=== PATIENT | male | born 1935 | race Caucasian/White ===

== ENCOUNTER 2020-01-14 10:06 | Emergency (ER) | payer MEDICARE, OTHER ==
--- NOTE | 2020-01-14 11:17 | EDM.PDOC ---
ED HPI GENERAL MEDICAL PROBLEM - General Chief Complaint: Cardiovascular Problem Stated Complaint: SWELLING IN FEET Time Seen by Provider: 01/14/20 10:55 Source of Information: Reports: Patient History Limitations: Reports: No Limitations - History of Present Illness INITIAL COMMENTS - FREE TEXT/NARRATIVE: 84-year-old male here with lower extremity edema. Is been bothering him for a week and is actually improving, he said he was swollen up to his thighs earlier and his toes were very swollen, now he just has tense edema between the knees and ankles. He does admit his been getting into extra salt since he came up here for vacation. He left his compression stockings at home. He recently received chemotherapy and radiation for cancer, he does not know what kind or where the radiation was. He has no pain or shortness of breath. His legs do not hurt. Onset: Gradual Duration: Week(s): (1 to 2 weeks) Associated Symptoms: Denies: Chest Pain, Cough, Fever/Chills, Headaches, Nausea/Vomiting, Shortness of Breath, Weakness - Related Data Allergies Allergy/AdvReac Type Severity Reaction Status Date / Time No Known Allergies Allergy Verified 01/14/20 10:45 Home Meds: Home Meds Allopurinol [Zyloprim] 100 mg PO DAILY 01/14/20 [History] Apixaban [Eliquis] 5 mg PO BID 01/14/20 [History] Levothyroxine 75 mcg PO ACBREAKFAST 01/14/20 [History] amLODIPine [Norvasc] 2.5 mg PO DAILY 01/14/20 [History] atorvaSTATin [Lipitor] 10 mg PO BEDTIME 01/14/20 [History] Past Medical History HEENT History: Reports: Hard of Hearing Cardiovascular History: Reports: High Cholesterol, Hypertension Musculoskeletal History: Reports: Gout Oncologic (Cancer) History: Reports: Other (See Below) Other Oncologic History: just finished chemo and radiation but doesn't remember what kind of cancer it was. - Past Surgical History GI Surgical History: Reports: Appendectomy Social & Family History - Tobacco Use Smoking Status *Q: Never Smoker - Caffeine Use Caffeine Use: Reports: Coffee - Recreational Drug Use Recreational Drug Use: No ED ROS GENERAL - Review of Systems Review Of Systems: See Below Constitutional: Denies: Fever, Chills, Malaise Respiratory: Denies: Shortness of Breath Cardiovascular: Denies: Chest Pain, Palpitations GI/Abdominal: Denies: Abdominal Pain, Nausea, Vomiting Skin: Reports: Other (Some oozing through some superficial blistering on the left lower leg due to the edema) Neurological: Reports: Other (Very hard of hearing). Denies: Paresthesia Psychiatric: Reports: No Symptoms ED EXAM, GENERAL - Physical Exam Exam: See Below Exam Limited By: No Limitations General Appearance: Alert, No Apparent Distress Head: Atraumatic Respiratory/Chest: No Respiratory Distress, Lungs Clear GI/Abdominal: Soft, Non-Tender Extremities: Other (Patient does have pitting edema both lower extremities from the knees to the top of the feet, with some clear serous oozing from a few blistering lesions on the left ankle.) Course - Vital Signs Last Recorded V/S: Last Vital Signs Temp 97 F 01/14/20 10:54 Pulse 52 L 01/14/20 10:54 Resp 14 01/14/20 10:54 BP 148/54 H 01/14/20 10:54 Pulse Ox 97 01/14/20 10:54 - Re-Assessments/Exams Free Text/Narrative Re-Assessment/Exam: 01/14/20 11:17 Discussed the importance of decreasing his salt intake over the course of the next week, also the importance of elevation and pressure with compression stockings and he is planning on stopping at the store and picking up another pair. I am also going to place him on Lasix 20 mg daily for the week until he gets home, and he will return if worsening despite treatment. 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 Pressure stockings will also be helpful. Recheck in 1 to 2 weeks, or sooner if not improving despite treatment. Sepsis Event Note (ED) - Evaluation Sepsis Screening Result: No Definite Risk - Focused Exam Vital Signs: Vital Signs Temp Pulse Resp BP Pulse Ox 01/14/20 10:54 97 F 52 L 14 148/54 H 97
== END 2020-01-14 11:29 | disposition home or self-care (01) ==
LOC: JP.ED 10:06
DX: I87.2 Venous insufficiency (chronic) (peripheral) (principal); I10 Essential (primary) hypertension; E78.00 Pure hypercholesterolemia, unspecified; M10.9 Gout, unspecified; Z79.899 Other long term (current) drug therapy; Z90.49 Acquired absence of other specified parts of digestive tract
CPT/HCPCS: 99283